=== PATIENT | female | born 1980 | race Caucasian/White ===

== ENCOUNTER 2017-01-16 21:52 | Emergency (ER) | payer MEDICAID ==
[~2017-01-16] VITALS: Ht 160 cm; Wt 57.6 kg
[~2017-01-16 21:52] MED LIST: BENZ100C70 PO; CIPR500T4 PO; HYDR-906 PO; IBUP-1542 PO; IBUP800T25 PO; ONDA4TAB14 PO; PEN500 PO; PROM6.25 PO
[2017-01-16 22:37] VITALS: Ht 160 cm; Wt 57.6 kg
--- NOTE | 2017-01-17 01:14 | ERD ---
ER Documentation Chief Complaint Date/Time DATE: 01/17/17 TIME: 01:13 Chief Complaint Right sided pelvic pain x3 days HPI 36-year-old female presents here in emergency department for complaints of right lower quadrant right pelvic pain for the last 3 days. Patient describing the pain as throbbing pain, 6/10 scale, not better or worse with anything. Patient denies any fever or chills. Patient denies hematuria or dysuria. Patient denies any diarrhea or constipation. Patient denies any nausea or vomiting. ROS All systems reviewed and are negative except as per history of present illness. Medications Home Meds Active Scripts Ibuprofen* (Motrin*) 600 Mg Tab, 600 MG PO Q6H Y for PAIN AND OR ELEVATED TEMP, #30 TAB Prov:LOLLY GROSS NP 11/06/16 Ondansetron (Ondansetron Odt) 4 Mg Tab.rapdis, 4 MG PO Q8 Y for NAUSEA AND/OR VOMITING, #10 TAB Prov:LOLLY GROSS NP 11/06/16 Hydrocodone/Acetaminophen ([place] 5-325 Tablet) 1 Each Tablet, 1 TAB PO Q6H Y for PAIN, #20 TAB Prov:LOLLY GROSS NP 11/06/16 Ibuprofen* (Motrin*) 600 Mg Tab, 600 MG PO Q6, #30 TAB Prov:DANDRE RIVAS PA-C 10/29/16 Ibuprofen* (Motrin*) 600 Mg Tab, 600 MG PO Q6, #20 TAB Prov:ARNULFO PARDO MD 02/15/16 Ibuprofen* (Motrin*) 800 Mg Tab, 800 MG PO Q6, #30 TAB Prov:ELYSSA HALEY PA-C 10/08/15 Promethazine w/Codeine* (Phenergan w/Codeine* Syrup) 5 Ml Syrup, 5 ML PO Q4H Y for COUGH, #30 ML Prov:ELYSSA HALEY PA-C 10/08/15 Benzonatate* (Tessalon Perle*) 100 Mg Capsule, 200 MG PO Q8H Y for COUGH, #30 CAP Prov:ELYSSA HALEY PA-C 10/08/15 Ciprofloxacin Hcl* (Ciprofloxacin Hcl*) 500 Mg Tablet, 500 MG PO BID for 7 Days , TAB Prov:ELYSSA HALEY PA-C 10/08/15 Ibuprofen* (Motrin*) 800 Mg Tab, 800 MG PO Q8 Y for PAIN AND OR ELEVATED TEMP, # 30 TAB Prov:TJ COLEMAN. [employer] 05/24/15 Penicillin V Potassium* (Penicillin V K*) 500 Mg Tab, 500 MG PO BID for 10 Days , TAB Prov:TJ COLEMAN. [employer] 05/24/15 Allergies Allergies: Coded Allergies: Sulfa (Sulfonamide Antibiotics) (Verified Allergy, Unknown, 11/05/16) PMhx/Soc Medical and Surgical Hx: pt denies Medical Hx History of Surgery: Yes (breast implants 2004) Anesthesia Reaction: No Hx Neurological Disorder: No Hx Respiratory Disorders: No Hx Cardiac Disorders: No Hx Psychiatric Problems: No Hx Miscellaneous Medical Probl: No Hx Alcohol Use: Yes (OOC) Hx Substance Use: No Hx Tobacco Use: No Smoking Status: Never smoker FmHx Family History: No coronary disease, No diabetes, No other Physical Exam Vitals Vital Signs Date Time Temp Pulse Resp B/P Pulse Ox O2 Delivery O2 Flow Rate FiO2 01/16/17 22:37 98.9 86 18 123/65 100 Physical Exam GENERAL: The patient is well developed and appropriate for usual state of health, in no apparent distress. CHEST: Clear to auscultation bilaterally. There are no rales, wheezes or rhonchi. HEART: Regular rate and rhythm. No murmurs, clicks, rubs or gallops. No S3 or S4. ABDOMEN: Soft, nontender and nondistended. Good bowel sounds. No rebound or guarding. No gross peritonitis. No gross organomegaly or masses. No Ariza sign or McBurney point tenderness. BACK: No midline or flank tenderness. EXTREMITIES: Equal pulses bilaterally. There is no peripheral clubbing, cyanosis or edema. No focal swelling or erythema. Full range of motion. Grossly neurovascularly intact. NEURO: Alert and oriented. Cranial nerves 2-12 intact. Motor strength in all 4 extremities with 5/5 strength. Sensation grossly intact. Normal speech and gait. SKIN: There is no apparent rash or petechia. The skin is warm and dry. HEMATOLOGIC AND LYMPHATIC: There is no evidence of excessive bruising or lymphedema. No gross cervical, axillary, or inguinal lymphadenopathy. Result Diagram: 01/17/17 0110 01/17/17 0110 Results 24 hrs Laboratory Tests Test 01/17/17 01:10 01/17/17 01:14 Alanine Aminotransferase (ALT/SGPT) 27IU/L Albumin 4.5g/dl Albumin/Globulin Ratio 1.09 Alkaline Phosphatase 84IU/L Anion Gap 18 Aspartate Amino Transf (AST/SGOT) 21IU/L Basophils # 0.010^3/ul Basophils % 0.4% Blood Morphology Comment Blood Urea Nitrogen 22mg/dl Calcium Level 9.6mg/dl Carbon Dioxide Level 28mmol/L Chloride Level 99mmol/L Creatinine 0.74mg/dl Direct Bilirubin 0.00mg/dl Eosinophils # 0.210^3/ul Eosinophils % 2.0% Globulin 4.10g/dl Glucose Level 91mg/dl Hematocrit 42.1% Hemoglobin 13.8g/dl Indirect Bilirubin 0.1mg/dl Lipase 150U/L Lymphocytes # 4.710^3/ul Lymphocytes % 46.9% Mean Corpuscular Hemoglobin 27.5pg Mean Corpuscular Hemoglobin Concent 32.7g/dl Mean Corpuscular Volume 84.1fl Mean Platelet Volume 9.9fl Monocytes # 0.810^3/ul Monocytes % 8.3% Neutrophils # 4.210^3/ul Neutrophils % 42.4% Nucleated Red Blood Cells # 0.010^3/ul Nucleated Red Blood Cells % 0.0/100WBC Platelet Count 71043^3/UL Potassium Level 4.1mmol/L Red Blood Count 5.0010^6/ul Red Cell Distribution Width 13.1% Sodium Level 141mmol/L Total Bilirubin 0.1mg/dl Total Protein 8.6g/dl White Blood Count 10.010^3/ul Urine Bilirubin NEGATIVE Urine Clarity CLEAR Urine Color LT. YELLOW Urine Glucose NEGATIVE% Urine Hemoglobin NEGATIVE Urine Ketones NEGATIVE Urine Leukocyte Esterase NEGATIVE Urine Nitrite NEGATIVE Urine Specific Roper 1.020 Urine Total Protein NEGATIVE Urine Urobilinogen 0.2 E.U./dL Urine pH 8.0 Current Medications Medications (Trade) Dose Ordered Sig/Severiano Route PRN Reason Start Time Stop Time Status Last Admin Dose Admin Acetaminophen/ Hydrocodone Bitart ([place] (10)) 1 tab ONCE ONCE PO 01/17/17 04:30 01/17/17 04:31 Patient was given medication for pain here in emergency department, after treatment, patient verbalized feeling much better. Patient's pain is improved. PROCEDURE: CT ABDOMEN/PELVIS WITHOUT CONTRAST CLINICAL INDICATION: 36-year-old female with abdominal pain. TECHNIQUE: The study was performed utilizing a [employer] VCT 64-slice CT scanner. Direct axial sections were obtained through the abdomen and pelvis without the use of intravenous contrast material. Sagittal and coronal reformations were obtained. Automated exposure control and iterative reconstruction techniques were utilized for this examination. The images were reviewed on a PACS workstation. CTD/vol = 15.2 mGy; Total Exam DLP = 797.6 mGy -cm. COMPARISON: CT abdomen/pelvis November 05, 2016;: Ultrasound pelvis January 17, 2017. FINDINGS: The inferior aspects of breast implants are noted. There is no evidence for significant pleural effusion. The liver has a normal size and contour without focal areas of abnormal density. No intrahepatic nor extrahepatic biliary ductal dilatation is seen. The gallbladder demonstrates no wall thickening nor pericholecystic fluid. No biliary stones are evident. The pancreas is without areas of abnormal attenuation. The spleen is identified and has a normal size without abnormal density. The adrenal glands are unremarkable. The kidneys are without abnormal density. No hydroureteronephrosis nor nephroureterolithiasis is evident. The urinary bladder contains urine. There is mildly dilated fluid- filled loops of small bowel without transition point to suggest an obstruction. There is mild retained stool identified within the colon. The appendix is not well visualized on this noncontrast examination. In addition there appears to be an appendicolith within the appendiceal tip measuring approximately 5 x 4 mm with probable thickening of the distal appendix measuring up to 8 mm. The uterus is unremarkable. There is minimal left adnexal free fluid. The aortoiliac vessels are without aneurysmal dilatation. The osseous structures are intact. IMPRESSION: 1. No CT evidence for obstructive uropathy or renal calculi. 2. Mild fluid throughout the small bowel without obstruction. This may representing enteritis or ileus. 3. Mild retained stool. 4. Appendicolith within the distal appendix with probable thickening measuring 8 mm however the appendix is not well visualized on this noncontrast examination. Acute appendicitis cannot be excluded. Clinical correlation and further evaluation with a limited CT with contrast may be helpful. 5. Minimal left adnexal free fluid. CRITICAL RESULTS: A call report was made to [facility] Hernández on January 17, 2017 at 03:35 a.m.. .Raymundo Dewitt MD, MD Date Time Electronically viewed and signed by .Raymundo Dewitt MD, MD on 01/17/2017 03:45 .M/ CC: LOLLY GROSS NP PROCEDURE: Ultrasound of the pelvis. CLINICAL INDICATION: Pain TECHNIQUE: Transabdominal ultrasound of the pelvis was performed to better evaluate the pelvic viscera. COMPARISON: No pertinent prior examinations were submitted for comparison. FINDINGS: LAST MENSTRUAL PERIOD: Unavailable UTERUS: Size: 8.2 x 3.9 x 4.4 cm. The uterine texture is homogeneous. The endometrium measures 9.9 mm which is within normal limits. RIGHT OVARY: Size: 3.9 x 2.3 x 2.4 cm. No ovarian lesion or cyst is identified.Normal Doppler flow is noted to the right ovary. LEFT OVARY: Size: 3.6 x 1.6 x 2.2 cm. No ovarian lesion or cyst is identified.Normal Doppler flow is noted to the left ovary. CUL-DE-SAC: There is small amount of free fluid in the cul-de-sac and right adnexal regions. IMPRESSION: Normal endometrium. No evidence of ovarian torsion. RPTAT: HIKT .Blaise Hudson MD, MD Date Time Electronically viewed and signed by .Blaise Hudson MD, MD on 01/17/2017 01:14 .T/ CC: LOLLY GROSS NP I discussed this case with my attending physician, Dr. Magaña, recommended to have patient return in 8 hours for reevaluation of symptoms, as per patient's case and presentation, and laboratory test results, and CT scan abdomen and pelvis results, there is very low suspicion for appendicitis at this time, patient's pain is improved after pain medication here in emergency department. After discussion with regional facilities specialist, Dr. Dewitt, previous CT scan report indicates the same findings. Procedures/MDM Medical Decision Making: Patient's right lower quadrant abdominal pain nonspecific at this time, can be viral enteritis, can be also be from the constipation. I discussed the CT scan abdomen and pelvis results with Dr. Magaña, reviewed the results with me, patient has an appendicolith noted on the distal appendix area, as per discussion with the radiologist specialist, Dr. Dewitt, he states that he was able to see the same type of results from previous CT scan done in October, suspicion for appendicitis at this time, Dr. Magaña recommends an 8 hour follow-up for reevaluation of symptoms and to ensure the patient is not developing abdominal emergencies. Patient does not have any leukocytosis or bandemia. Patient does not have any fever. Patient does not have any nausea or vomiting. Upon reevaluation of the patient, patient is stable, patient verbalizing much better. There is low suspicion for abdominal emergencies at this time. Patients abdominal exam is normal at this time. Patients radiology exam does not show any abdominal emergencies at this time. There is low suspicion for appendicitis, ovarian torsion, cholecystitis, abdominal aortic aneurysms or peritonitis at this time. There is low suspicion for sepsis. Patient appears well and is hemodynamically stable. Disposition: Home. Condition: Stable Prescription tramadol, Zofran, Colace, Bentyl, MiraLAX Instructions: Patient is advised to take medications as prescribed. Patient is advised to rest, increase fluid intake and do brat diet for next 1-2 days and progress as tolerated. Patient is advised that if symptoms are worse, severe abdominal pain, uncontrolled vomiting, high fever, severe flank pain, worst signs and symptoms, to return to the emergency department immediately. Otherwise, patient can follow up with here in emergency department in 8 hours. Departure Diagnosis: Primary Impression: Abdominal pain Abdominal location: right lower quadrant Qualified Code: R10.31 - Right lower quadrant abdominal pain Additional Impressions: Enteritis Constipation Constipation type: unspecified constipation type Qualified Code: K59.00 - Constipation, unspecified constipation type Condition: Stable Patient Instructions: Abdominal Pain, Constipation (Adult), Gastroenteritis, Viral (6Y-Adult) Additional Instructions: Patient is advised to take medications as prescribed. Patient is advised to rest , increase fluid intake and do brat diet for next 1-2 days and progress as tolerated. Patient is advised that if symptoms are worse, severe abdominal pain , uncontrolled vomiting, high fever, severe flank pain, worst signs and symptoms , to return to the emergency department immediately. Otherwise, patient can follow up with here in emergency department in 8 hours. LOLLY GROSS NP Jan 17, 2017 01:14
--- NOTE | 2017-01-17 01:14 | RADRPT ---
PROCEDURE: Ultrasound of the pelvis. CLINICAL INDICATION: Pain TECHNIQUE: Transabdominal ultrasound of the pelvis was performed to better evaluate the pelvic vis cera. COMPARISON: No pertinent prior examinations were submitted for comparison. FINDINGS: LAST MENSTRUAL PERIOD: Unavailable UTERUS: Size: 8.2 x 3.9 x 4.4 cm. The uterine texture is homogeneous. The endometrium measures 9.9 mm which is within normal limits. RIGHT OVARY: Size: 3.9 x 2.3 x 2.4 cm. No ovarian lesion or cyst is identified.Normal Doppler flow is noted to th e right ovary. LEFT OVARY: Size: 3.6 x 1.6 x 2.2 cm. No ovarian lesion or cyst is identified.Normal Doppler flow is noted to th e left ovary. CUL-DE-SAC: There is small amount of free fluid in the cul-de-sac and right adnexal regions. IMPRESSION: Normal endometrium. No evidence of ovarian torsion. RPTAT: HIKT .Blaise Hudson MD, MD Date Time Electronically viewed and signed by .Blaise Hudson MD, on 01/17/2017 01:14 .T/
[2017-01-17 01:34] LABS: BASOPHILS % 0.4 % (0.0-2.0); EOSINOPHILS # 0.2 10^3/ul (0.0-0.5); HEMATOCRIT 42.1 % (37.0-47.0); HEMOGLOBIN 13.8 g/dl (12.0-16.0); LYMPHOCYTES # 4.7 10^3/ul (0.8-2.9); LYMPHOCYTES % 46.9 % (15.0-51.0); MEAN CORPUSCULAR HEMOGLOBIN 27.5 pg (29.0-33.0); MEAN CORPUSCULAR HGB CONC 32.7 g/dl (32.0-37.0); MEAN CORPUSCULAR VOLUME 84.1 fl (82.0-101.0); MEAN PLATELET VOLUME 9.9 fl (7.4-10.4); MONOCYTE # 0.8 10^3/ul (0.3-0.9); MONOCYTES % 8.3 % (0.0-11.0); NEUTROPHIL # 4.2 10^3/ul (1.6-7.5); NEUTROPHILS % 42.4 % (39.0-77.0); PLATELET COUNT 238 10^3/UL (140-440); RED CELL DISTRIBUTION WIDTH 13.1 % (11.5-14.5)
[2017-01-17 01:37] LABS: ALBUMIN 4.5 g/dl (3.3-4.9); POTASSIUM 4.1 mmol/L (3.5-5.1)
[2017-01-17 01:39] LABS: CREATININE 0.74 mg/dl (0.44-1.00)
[2017-01-17 01:40] LABS: ALBUMIN/GLOBULIN RATIO 1.09; BILIRUBIN,INDIRECT 0.1 mg/dl (0-1.1); BILIRUBIN,TOTAL 0.1 mg/dl (0.2-1.3); CALCIUM 9.6 mg/dl (8.4-10.2); TOTAL PROTEIN 8.6 g/dl (6.1-8.1)
[2017-01-17 01:49] LABS: CONDITION 1
[2017-01-17 02:02] LABS: ADD UMIC NO; URINE BILIRUBIN (Dip) NEGATIVE (NEGATIVE); URINE BLOOD (Dip) NEGATIVE (NEGATIVE); URINE COLOR LT. YELLOW (YELLOW); URINE GLUCOSE (Dip) NEGATIVE (NEGATIVE); URINE KETONES (Dip) NEGATIVE (NEGATIVE); URINE LEUKOCYTE ESTERASE (Dip) NEGATIVE (NEGATIVE); URINE NITRITE (Dip) NEGATIVE (NEGATIVE); URINE TOTAL PROTEIN (Dip) NEGATIVE (NEGATIVE); URINE UROBILINOGEN (Dip) 0.2 E.U./dL (0.1-1.0)
--- NOTE | 2017-01-17 03:45 | RADRPT ---
PROCEDURE: CT ABDOMEN/PELVIS WITHOUT CONTRAST CLINICAL INDICATION: 36-year-old female with abdominal pain. TECHNIQUE: The study was performed utilizing a [employer] VCT 64-slice CT scanner. Direct axia l sections were obtained through the abdomen and pelvis without the use of intravenous contrast mate rial. Sagittal and coronal reformations were obtained. Automated exposure control and iterative dolores nstruction techniques were utilized for this examination. [facility]/vol = 15.2 mGy; Total Exam DLP = 797.6 mGy-cm. COMPARISON: CT abdomen/pelvis November 05, 2016;: Ultrasound pelvis January 17, 2017. FINDINGS: The inferior aspects of breast implants are noted. There is no evidence for significant pleural effu gibran. The liver has a normal size and contour without focal areas of abnormal density. No intrahepa tic nor extrahepatic biliary ductal dilatation is seen. The gallbladder demonstrates no wall thicken ing nor pericholecystic fluid. No biliary stones are evident. The pancreas is without areas of abnor mal attenuation. The spleen is identified and has a normal size without abnormal density. The adren al glands are unremarkable. The kidneys are without abnormal density. No hydroureteronephrosis nor n ephroureterolithiasis is evident. The urinary bladder contains urine. There is mildly dilated fluid- filled loops of small bowel without transition point to suggest an obstruction. There is mild retai lulu stool identified within the colon. The appendix is not well visualized on this noncontrast exami nation. In addition there appears to be an appendicolith within the appendiceal tip measuring approximately 5 x 4 mm with probable thickening of the distal appendix measuring up to 8 mm. The ut erus is unremarkable. There is minimal left adnexal free fluid. The aortoiliac vessels are without aneurysmal dilatation. The osseous structures are intact. IMPRESSION: 1. No CT evidence for obstructive uropathy or renal calculi. 2. Mild fluid throughout the small bowel without obstruction. This may representing enteritis or i leus. 3. Mild retained stool. 4. Appendicolith within the distal appendix with probable thickening measuring 8 mm however the odin endix is not well visualized on this noncontrast examination. Acute appendicitis cannot be excluded . Clinical correlation and further evaluation with a limited CT with contrast may be helpful. 5. Minimal left adnexal free fluid. CRITICAL RESULTS: A call report was made to [facility] Hernández on January 17, 2017 at 0 3:35 a.m.. .Raymundo Dewitt MD, MD Date Time Electronically viewed and signed by .Raymundo Dewitt MD, on 01/17/2017 03:45 .M/
[2017-01-17] MEDS ORDERED: POLY17PO6 PO (04:13)
[2017-01-17] MEDS ORDERED: TRAM50TA2 PO (04:13)
[2017-01-17] MEDS ORDERED: DICY10CA60 PO (04:13)
[2017-01-17] MEDS ORDERED: DOCU-144 PO (04:13)
[2017-01-17] MEDS ORDERED: HYDROCODONE/APAP (10/325) TAB PO ONE (04:30)
[2017-01-17 04:52] VITALS: BP 130/83; PULSE 83; RESP 18; TEMP 98.4
== END 2017-01-17 04:52 | disposition home or self-care (01) ==
LOC: FTE 21:52
DX: R10.31 Right lower quadrant pain (principal); K52.9 Noninfective gastroenteritis and colitis, unspecified; K59.00 Constipation, unspecified
CPT/HCPCS: 36415; 74176; 76856; 80053; 81003; 83690; 85025; Z7502; Z7610

== ENCOUNTER 2017-01-17 12:22 | Emergency (ER) | payer MEDICAID ==
[~2017-01-17] VITALS: Wt 59.2 kg
[~2017-01-17 12:22] MED LIST changes: +DICY10CA60 PO; +DOCU-144 PO; +POLY17PO6 PO; +TRAM50TA2 PO
--- NOTE | 2017-01-17 14:50 | ERD ---
ER Documentation Chief Complaint Date/Time DATE: 01/17/17 TIME: 14:48 Chief Complaint HERE FOR 8 HR RECHECK FOR ABD PAIN LAST NIGHT. NO NEW SYMPTOMS HPI 36-year-old female is here for recheck abdominal pain for right lower quadrant pain after being discharged approximately [address] of the abdomen and pelvis showed an appendicolith, appendix she denies any fevers, chills, nausea vomiting. She states that her pain is localized in the right lower quadrant, sharp, and slightly worsened since she last left. She denies any vaginal pain, vaginal discharge. ROS All systems reviewed and are negative except as per history of present illness. Medications Home Meds Active Scripts Docusate Sodium* (Colace*) 100 Mg Capsule, 100 MG PO TID, #30 CAP Prov:LOLLY GROSS NP 01/17/17 Polyethylene Glycol* (Miralax*) 17 Gm Powd.pack, 17 GM PO DAILY, #7 Prov:LOLLY GROSS NP 01/17/17 Dicyclomine Hcl* (Bentyl*) 10 Mg Capsule, 20 MG PO QID, #20 CAP Prov:LOLLY GROSS NP 01/17/17 Tramadol HCl (Tramadol HCl) 50 Mg Tablet, 50 MG PO Q6 Y for SEVERE PAIN LEVEL 7- 10, #20 TAB Prov:LOLLY GROSS NP 01/17/17 Ibuprofen* (Motrin*) 600 Mg Tab, 600 MG PO Q6H Y for PAIN AND OR ELEVATED TEMP, #30 TAB Prov:LOLLY GROSS NP 11/06/16 Ondansetron (Ondansetron Odt) 4 Mg Tab.rapdis, 4 MG PO Q8 Y for NAUSEA AND/OR VOMITING, #10 TAB Prov:LOLLY GROSS NP 11/06/16 Hydrocodone/Acetaminophen ([place] 5-325 Tablet) 1 Each Tablet, 1 TAB PO Q6H Y for PAIN, #20 TAB Prov:LOLLY GROSS NP 11/06/16 Ibuprofen* (Motrin*) 600 Mg Tab, 600 MG PO Q6, #30 TAB Prov:DANDRE RIVAS PA-C 10/29/16 Ibuprofen* (Motrin*) 600 Mg Tab, 600 MG PO Q6, #20 TAB Prov:ARNULFO PARDO MD 02/15/16 Ibuprofen* (Motrin*) 800 Mg Tab, 800 MG PO Q6, #30 TAB Prov:ELYSSA HALEYC 10/08/15 Promethazine w/Codeine* (Phenergan w/Codeine* Syrup) 5 Ml Syrup, 5 ML PO Q4H Y for COUGH, #30 ML Prov:ELYSSA HALEY PA-C 10/08/15 Benzonatate* (Tessalon Perle*) 100 Mg Capsule, 200 MG PO Q8H Y for COUGH, #30 CAP Prov:ELYSSA HALEY PA-C 10/08/15 Ciprofloxacin Hcl* (Ciprofloxacin Hcl*) 500 Mg Tablet, 500 MG PO BID for 7 Days , TAB Prov:ELYSSA HALEY PA-C 10/08/15 Ibuprofen* (Motrin*) 800 Mg Tab, 800 MG PO Q8 Y for PAIN AND OR ELEVATED TEMP, # 30 TAB Prov:TJ COLEMAN NP 05/24/15 Penicillin V Potassium* (Penicillin V K*) 500 Mg Tab, 500 MG PO BID for 10 Days , TAB Prov:TJ COLEMAN [employer] 05/24/15 Allergies Allergies: Coded Allergies: Sulfa (Sulfonamide Antibiotics) (Verified Allergy, Unknown, 01/17/17) PMhx/Soc History of Surgery: Yes (breast implants 2004) Anesthesia Reaction: No Hx Neurological Disorder: No Hx Respiratory Disorders: No Hx Cardiac Disorders: No Hx Psychiatric Problems: No Hx Miscellaneous Medical Probl: No Hx Alcohol Use: Yes (OOC) Hx Substance Use: No Hx Tobacco Use: No Physical Exam Vitals Vital Signs Date Time Temp Pulse Resp B/P Pulse Ox O2 Delivery O2 Flow Rate FiO2 01/17/17 12:25 98.4 100 21 142/75 99 Physical Exam General: Well-developed, well-nourished. The patient appears in no acute distress. HEENT: Head is normocephalic, atraumatic. No scleral icterus. Neck: Supple. Nontender. Lungs: Clear to auscultation. Normal air movement. Heart: Regular rate and rhythm. S1 and S2 are normal. No murmurs, gallops, or rubs. Abdomen: Soft, tender in the right lower quadrant, no masses nondistended. Bowel sounds are normoactive. Negative Ariza sign, no hepatosplenomegaly. Extremities: No clubbing or cyanosis. Normal pulses. Moving extremities x 4. No weakness. Neurologic: Alert and oriented 3. No focal deficits. Skin: Normal turgor. No rash or lesions. Result Diagram: 01/17/17 1445 01/17/17 1445 Results 24 hrs Laboratory Tests Test 01/17/17 14:30 01/17/17 14:45 Urine Bilirubin NEGATIVE Urine Clarity CLEAR Urine Color LT. YELLOW Urine Glucose NEGATIVE% Urine Hemoglobin NEGATIVE Urine Ketones NEGATIVE Urine Leukocyte Esterase NEGATIVE Urine Nitrite NEGATIVE Urine Specific [place] <=1.005 Urine Total Protein NEGATIVE Urine Urobilinogen 0.2 E.U./dL Urine pH 7.0 Alanine Aminotransferase (ALT/SGPT) 31IU/L Albumin 4.7g/dl Albumin/Globulin Ratio 1.27 Alkaline Phosphatase 71IU/L Anion Gap 18 Aspartate Amino Transf (AST/SGOT) 20IU/L Basophils # 0.010^3/ul Basophils % 0.5% Blood Urea Nitrogen 15mg/dl Calcium Level 9.7mg/dl Carbon Dioxide Level 28mmol/L Chloride Level 100mmol/L Creatinine 0.68mg/dl Direct Bilirubin 0.00mg/dl Eosinophils # 0.210^3/ul Eosinophils % 1.8% Globulin 3.70g/dl Glucose Level 86mg/dl Hematocrit 43.5% Hemoglobin 13.9g/dl Indirect Bilirubin 0.4mg/dl Lipase 175U/L Lymphocytes # 4.010^3/ul Lymphocytes % 44.9% Mean Corpuscular Hemoglobin 26.9pg Mean Corpuscular Hemoglobin Concent 32.0g/dl Mean Corpuscular Volume 84.3fl Mean Platelet Volume 11.5fl Monocytes # 0.810^3/ul Monocytes % 8.8% Neutrophils # 3.910^3/ul Neutrophils % 43.8% Nucleated Red Blood Cells # 0.010^3/ul Nucleated Red Blood Cells % 0.0/100WBC Platelet Count 08123^3/UL Potassium Level 4.3mmol/L Red Blood Count 5.1610^6/ul Red Cell Distribution Width 13.5% Sodium Level 142mmol/L Total Bilirubin 0.4mg/dl Total Protein 8.4g/dl White Blood Count 8.810^3/ul Current Medications Medications (Trade) Dose Ordered Sig/Severiano Route PRN Reason Start Time Stop Time Status Last Admin Dose Admin IV Flush 10 ml 10 ml STK-MED ONCE .ROUTE 01/17/17 15:20 01/17/17 15:21 DC 01/17/17 15:33 Sodium Chloride (NS) 100 ml @ ud STK-MED ONCE .ROUTE 01/17/17 15:20 01/17/17 15:21 DC 01/17/17 15:34 Iohexol (Omnipaque 300mg/ ml) 150 ml STK-MED ONCE .ROUTE 01/17/17 15:20 01/17/17 15:21 DC 01/17/17 15:34 Ketorolac Tromethamine (Toradol) 30 mg ONCE STAT IV 01/17/17 15:53 01/17/17 15:54 DC 01/17/17 16:00 PROCEDURE: CT abdomen and pelvis with contrast. CLINICAL INDICATION: Right lower quadrant pain TECHNIQUE: CT scan of the abdomen and pelvis with contrast was performed on a multi-slice CT scanner. The patient was scanned following the uncomplicated intravenous administration 100 cc of Omnipaque 300. Coronal and sagittal reformatted images were obtained from the axial source images. One or more of the following does reduction techniques were used: Automated exposure control; adjustment of the mA and/or kV according to patient size; use of the aorta of reconstruction technique. Images were reviewed on a high-resolution PACS workstation. The total exam CTDI equals 15.16 mGy and the total exam DLP equals 777.24 mGy-cm. COMPARISON: CT abdomen pelvis 01/17/2017 at 02:50 a.m. FINDINGS: The lung bases are clear. The heart size is normal, without pericardial thickening or effusion. The liver, spleen, and pancreas are normal. The gallbladder is normal. The adrenal glands are symmetric and normal. The kidneys show normal and symmetric enhancement. No renal calculus or obstructive uropathy is seen. The aorta is of normal caliber. There is no retroperitoneal lymph node enlargment. There is no evidence of large or small bowel obstruction. A normal appendix is identified in the medial retrocecal location. The appendix is best identified on coronal imaging. There is a small amount of pelvic free fluid. There is no abdominal free fluid. No definitive inflammatory changes are identified. There is mild retained colonic stool. The uterus is present. Incidental note is made of a corpus luteal cyst in the right adnexa centered within the free fluid. There is no evidence of pelvic sidewall lymph node enlargement. The bladder is within normal limits there is mild pelvic free fluid.. The osseous structures are intact. IMPRESSION: 1. Mild pelvic free fluid. 2. Normal appendix identified. No other CT evidence of acute intra-abdominal or pelvic process. No appendicolith identified. The calcification reported on prior CT is likely within the right ovary. RPTAT: KK .Osvaldo Diggs MD, MD Date Time Electronically viewed and signed by .Osvaldo Diggs MD, on 2016 15:43 .B/ Procedures/MDM ED course: I spoke with the patient, I did explain the risks and benefits of a CT scan, I offered to do blood work at this time to see if there are any changes of a white blood cell count, she states that she was like to ensure that there is no evidence of appendicitis at this time, given the risks versus benefits, she understands the radiation risks and is wanting to go through with a another CT scan at this time. Therefore, patient had an IV line established, repeat blood was obtained, and she had a CT abdomen pelvis with IV contrast and the patient's CT scan was normal.. MDM: 36-year-old female comes in for repeat abdominal pain in the right lower quadrant, CT abdomen pelvis does not show evidence of appendicolith, evidence of appendicitis. No pelvic findings. I did review patient's electronic medical record, her labs have remained the same, there is no leukocytosis, no electrolyte abnormalities, CT abdomen and pelvis was noted to have some mild colonic stool and she is already taking Colace. Pelvic ultrasound did not show evidence of ovarian mass or torsion. I am she was given Toradol in the emergency department this time, given that she has no surgical or acute abdominal processes, I feel that the patient can be safely managed on an outpatient basis. She has been asked to return in 8-12 hours for recheck, or sooner she has any worsening symptoms including fever. Departure Diagnosis: Primary Impression: Abdominal pain Condition: LUCY Duke PA-C Jan 17, 2017 14:49
[2017-01-17 14:54] LABS: ADD SCAN DIFF NO
[2017-01-17 15:18] LABS: ADD UMIC NO; URINE BILIRUBIN (Dip) NEGATIVE (NEGATIVE); URINE BLOOD (Dip) NEGATIVE (NEGATIVE); URINE COLOR LT. YELLOW (YELLOW); URINE GLUCOSE (Dip) NEGATIVE (NEGATIVE); URINE KETONES (Dip) NEGATIVE (NEGATIVE); URINE LEUKOCYTE ESTERASE (Dip) NEGATIVE (NEGATIVE); URINE NITRITE (Dip) NEGATIVE (NEGATIVE); URINE TOTAL PROTEIN (Dip) NEGATIVE (NEGATIVE); URINE UROBILINOGEN (Dip) 0.2 E.U./dL (0.1-1.0)
[2017-01-17 15:18] LABS: ALBUMIN 4.7 g/dl (3.3-4.9)
[2017-01-17 15:19] LABS: POTASSIUM 4.3 mmol/L (3.5-5.1)
[2017-01-17] MEDS ORDERED: IOHEXOL 300MG/ML 150 ML BTL ONE (15:20)
[2017-01-17] MEDS ORDERED: SOD CHLORIDE 0.9% 100 ML ONE (15:20)
[2017-01-17 15:21] LABS: ALBUMIN/GLOBULIN RATIO 1.27; BASOPHILS % 0.5 % (0.0-2.0); BILIRUBIN,INDIRECT 0.4 mg/dl (0-1.1); BILIRUBIN,TOTAL 0.4 mg/dl (0.2-1.3); CREATININE 0.68 mg/dl (0.44-1.00); EOSINOPHILS # 0.2 10^3/ul (0.0-0.5); EOSINOPHILS % 1.8 % (0.0-7.0); HEMATOCRIT 43.5 % (37.0-47.0); HEMOGLOBIN 13.9 g/dl (12.0-16.0); LYMPHOCYTES % 44.9 % (15.0-51.0); MEAN CORPUSCULAR HEMOGLOBIN 26.9 pg (29.0-33.0); MEAN CORPUSCULAR VOLUME 84.3 fl (82.0-101.0); MEAN PLATELET VOLUME 11.5 fl (7.4-10.4); MONOCYTE # 0.8 10^3/ul (0.3-0.9); MONOCYTES % 8.8 % (0.0-11.0); NEUTROPHIL # 3.9 10^3/ul (1.6-7.5); NEUTROPHILS % 43.8 % (39.0-77.0); PLATELET COUNT 268 10^3/UL (140-415); RED BLOOD COUNT 5.16 10^6/ul (4.20-5.40); RED CELL DISTRIBUTION WIDTH 13.5 % (11.5-14.5); TOTAL PROTEIN 8.4 g/dl (6.1-8.1); WHITE BLOOD COUNT 8.8 10^3/ul (4.8-10.8)
[2017-01-17 15:22] LABS: CALCIUM 9.7 mg/dl (8.4-10.2)
--- NOTE | 2017-01-17 15:43 | RADRPT ---
PROCEDURE: CT abdomen and pelvis with contrast. CLINICAL INDICATION: Right lower quadrant pain TECHNIQUE: CT scan of the abdomen and pelvis with contrast [facility] The patient was scanned following the uncomplicated intravenous administration 100 cc of Omnipa que 300. Coronal and sagittal reformatted images were obtained from the axial source images. One or more of the following does reduction techniques were used: Automated exposure control; adjustment of the mA and/or kV according to patient size; use of the aorta of reconstruction technique. Images were reviewed on a high-resolution PACS workstation. The total exam CTDI equals 15.16 mGy and the to emma exam DLP equals 777.24 mGy-cm. COMPARISON: CT abdomen pelvis 01/17/2017 at 02:50 a.m. FINDINGS: The lung bases are clear. The heart size is normal, without pericardial thickening or effusion. The liver, spleen, and pancreas are normal. The gallbladder is normal. The adrenal glands are symmetric and normal. The kidneys show normal and symmetric enhancement. No renal calculus or obstructive uropathy is seen. The aorta is of normal caliber. There is no retroperitoneal lymph node enlargment. There is no evidence of large or small bowel obstruction. A normal appendix is identified in the med ial retrocecal location. The appendix is best identified on coronal imaging. There is a small amoun t of pelvic free fluid. There is no abdominal free fluid. No definitive inflammatory changes are i dentified. There is mild retained colonic stool. The uterus is present. Incidental note is made of a corpus luteal cyst in the right adnexa centered within the free fluid. There is no evidence of pelvic sidewall lymph node enlargement. The bladde r is within normal limits there is mild pelvic free fluid.. The osseous structures are intact. IMPRESSION: 1. Mild pelvic free fluid. 2. Normal appendix identified. No other CT evidence of acute intra-abdominal or pelvic process. N o appendicolith identified. The calcification reported on prior CT is likely within the right ovary . RPTAT: KK .Osvaldo Diggs MD, Date Time Electronically viewed and signed by .Osvaldo Diggs MD, on 01/17/2017 15:43 .B/
[2017-01-17] MEDS ORDERED: KETOROLAC 30 MG INJ IV STA (15:53)
[2017-01-17 16:19] VITALS: BP 116/62; PULSE 69; RESP 20; TEMP 98.3
== END 2017-01-17 16:20 | disposition home or self-care (01) ==
LOC: FTE 12:22
DX: R10.31 Right lower quadrant pain (principal)
CPT/HCPCS: 36415; 74177; 80053; 81003; 83690; 85025; 96374; J1885; Q9967; Z7502; Z7610

== ENCOUNTER 2017-01-24 01:00 | Emergency (ER) | payer MEDICAID, OTHER ==
[~2017-01-24] VITALS: Ht 160 cm; Wt 59.1 kg
[2017-01-24 01:03] VITALS: Ht 160 cm; Wt 59.1 kg
[2017-01-24] MEDS ORDERED: KETOROLAC 60 MG INJ IM STA (03:27)
--- NOTE | 2017-01-24 04:37 | RADRPT ---
PROCEDURE: XR Abdomen. CLINICAL INDICATION: Abdominal pain and constipation TECHNIQUE: Upright and supine abdominal x-rays were obtained. COMPARISON: CT from 01/17/2017 FINDINGS: Few minimally dilated right lower quadrant small bowel loops are seen. Several air-fluid levels are seen throughout the abdomen which appear to primarily be within the colon. No free air is seen. Th e previously seen appendicolith is not seen with certainty. There is not a large stool burden. The lung bases are clear. The bony skeleton is unremarkable. Umbilical ring is seen. The visualized bony skeleton is unremarkable. IMPRESSION: Few minimally dilated right lower quadrant small bowel loops. Several predominately colonic air flu id levels. No definite free air. If CT is planned, oral contrast would be suggested to better eval uate the appendix compared with the prior CT. RPTAT: HLBE Physician Melodie Date Time Electronically viewed and signed by Physician Melodie on 01/24/2017 04:37 LE/
[2017-01-24] MEDS ORDERED: SOD CHLORIDE 0.9% 1,000 ML IV STA (05:03)
[2017-01-24 05:35] LABS: ADD SCAN DIFF NO
[2017-01-24 05:55] LABS: ALBUMIN 4.2 g/dl (3.3-4.9)
[2017-01-24 05:56] LABS: POTASSIUM 3.9 mmol/L (3.5-5.1)
[2017-01-24 05:58] LABS: ALBUMIN/GLOBULIN RATIO 0.95; BILIRUBIN,INDIRECT 0.3 mg/dl (0-1.1); BILIRUBIN,TOTAL 0.3 mg/dl (0.2-1.3); CREATININE 0.69 mg/dl (0.44-1.00); TOTAL PROTEIN 8.6 g/dl (6.1-8.1)
[2017-01-24 05:59] LABS: CALCIUM 9.4 mg/dl (8.4-10.2)
[2017-01-24] MEDS ORDERED: BARIUM SULF 2% 450 ML BTL (BERRY SMOOTHIE) PO ONE (06:01)
[2017-01-24 06:09] LABS: BASOPHILS % 0.4 % (0.0-2.0); EOSINOPHILS # 0.1 10^3/ul (0.0-0.5); EOSINOPHILS % 1.2 % (0.0-7.0); HEMATOCRIT 39.3 % (37.0-47.0); HEMOGLOBIN 12.9 g/dl (12.0-16.0); LYMPHOCYTES # 4.1 10^3/ul (0.8-2.9); LYMPHOCYTES % 41.8 % (15.0-51.0); MEAN CORPUSCULAR HEMOGLOBIN 27.4 pg (29.0-33.0); MEAN CORPUSCULAR HGB CONC 32.8 g/dl (32.0-37.0); MEAN CORPUSCULAR VOLUME 83.6 fl (82.0-101.0); MEAN PLATELET VOLUME 11.4 fl (7.4-10.4); MONOCYTE # 0.8 10^3/ul (0.3-0.9); NEUTROPHIL # 4.7 10^3/ul (1.6-7.5); NEUTROPHILS % 48.3 % (39.0-77.0); PLATELET COUNT 258 10^3/UL (140-415); RED CELL DISTRIBUTION WIDTH 13.2 % (11.5-14.5); WHITE BLOOD COUNT 9.7 10^3/ul (4.8-10.8)
[2017-01-24 07:15] LABS: ADD UMIC NO; URINE BILIRUBIN (Dip) NEGATIVE (NEGATIVE); URINE BLOOD (Dip) NEGATIVE (NEGATIVE); URINE COLOR LT. YELLOW (YELLOW); URINE GLUCOSE (Dip) NEGATIVE (NEGATIVE); URINE KETONES (Dip) 15 (NEGATIVE); URINE LEUKOCYTE ESTERASE (Dip) NEGATIVE (NEGATIVE); URINE NITRITE (Dip) NEGATIVE (NEGATIVE); URINE TOTAL PROTEIN (Dip) NEGATIVE (NEGATIVE); URINE UROBILINOGEN (Dip) 0.2 E.U./dL (0.1-1.0)
[2017-01-24] MEDS ORDERED: ONDANSETRON 4 MG INJ IV STA (08:20)
[2017-01-24] MEDS ORDERED: morphine 4 MG/ML VIAL IV STA (08:20)
--- NOTE | 2017-01-24 09:08 | RADRPT ---
PROCEDURE: CT Abdomen and Pelvis without contrast. CLINICAL INDICATION: Right lower quadrant abdominal pain TECHNIQUE: CT scan of the abdomen and pelvis without contrast was performed on a multidetector hig h-resolution CT scanner. The patient was scanned without intravenous contrast, with oral contrast. Coronal and sagittal reformatted images were obtained from the axial source images. Images were revi ewed on a high-resolution PACS workstation. One or more of the following dose reduction techniques w ere used: Automated exposure control, adjustment of the mA and/or kV according to patient size, us e of iterative reconstruction technique. The total exam CTDI equals 6.5 mGy and the total exam DLP equals 340.95 mGy-cm. COMPARISON: CTs from 01/17/2017 and 11/05/2016. FINDINGS: CT abdomen: The lung bases are clear. The heart size is normal, without pericardial thickening or effusion. The liver is normal in size and density without focal mass or intrahepatic biliary dilatation. The spleen is normal in size and homogeneous in density. The stomach is grossly unremarkable. The panc reas as visualized is normal. The gallbladder and biliary tree are unremarkable and there is no favio dence for biliary dilatation. The adrenal glands are symmetric and normal. The kidneys are symmetr ically unremarkable as well. No renal calculus or obstructive uropathy or mass lesion is seen. The aorta is of normal caliber. There is no retroperitoneal lymphadenopathy. The leisa hepatis reg ion is clear. The small bowel and mesentery, as visualized, are unremarkable. Enteric contrast is p resent throughout the small and large bowel. Contrast is seen within the appendix lumen. CT pelvis: The small bowel loops situated within the pelvis are unremarkable. The pelvic organs are normal. T he pelvic sidewalls and inguinal regions are clear. The sigmoid colon and rectum are unremarkable. The appendix is normal. No mass, lymphadenopathy, or free fluid is seen. No acute inflammation is s een. The surrounding osseous structures are unremarkable. No osteolytic or osteoblastic lesion is detec siva. IMPRESSION: No abdominal or pelvic acute inflammatory process, mass, or lymphadenopathy. Normal appendix. RPTAT: JJ .Sea Golden MD, MD Date Time Electronically viewed and signed by .Sea Golden MD, on 01/24/2017 09:07 .A/
[2017-01-24] MEDS ORDERED: IBUP-1542 PO (09:33)
[2017-01-24] MEDS ORDERED: ONDA4TAB14 PO (09:34)
[2017-01-24 09:54] VITALS: BP 112/73; PULSE 86; RESP 18; TEMP 98.4
--- NOTE | 2017-01-24 12:43 | ERD ---
ER Documentation Chief Complaint Date/Time DATE: 01/24/17 TIME: 12:41 Chief Complaint RLQ abd pain x 1 day HPI Patient is a 36-year-old female with multiple visits for abdominal pain upon review of old medical records who presents with abdominal pain. The patient is right lower quadrant abdominal pain which is been going on for the past few days. The pain comes and goes. This is her third visit in the last few days for the same. She was given Dierks but is not taking it. ROS All systems reviewed and are negative except as per history of present illness. Medications Home Meds Active Scripts Ondansetron (Ondansetron Odt) 4 Mg Tab.rapdis, 4 MG PO Q6H Y for NAUSEA AND/OR VOMITING, #30 TAB Prov:LUANNE LOPEZ MD 01/24/17 Ibuprofen* (Motrin*) 600 Mg Tab, 600 MG PO Q6H Y for PAIN AND OR ELEVATED TEMP, #30 TAB Prov:LUANNE LOPEZ MD 01/24/17 Discontinued Scripts Docusate Sodium* (Colace*) 100 Mg Capsule, 100 MG PO TID, #30 CAP Prov:LOLLY GROSS NP 01/17/17 Polyethylene Glycol* (Miralax*) 17 Gm Powd.pack, 17 GM PO DAILY, #7 Prov:LOLLY GROSS NP 01/17/17 Dicyclomine Hcl* (Bentyl*) 10 Mg Capsule, 20 MG PO QID, #20 CAP Prov:LOLLY GROSS NP 01/17/17 Tramadol HCl (Tramadol HCl) 50 Mg Tablet, 50 MG PO Q6 Y for SEVERE PAIN LEVEL 7- 10, #20 TAB Prov:LOLLY GROSS NP 01/17/17 Ibuprofen* (Motrin*) 600 Mg Tab, 600 MG PO Q6H Y for PAIN AND OR ELEVATED TEMP, #30 TAB Prov:LOLLY GROSS NP 11/06/16 Ondansetron (Ondansetron Odt) 4 Mg Tab.rapdis, 4 MG PO Q8 Y for NAUSEA AND/OR VOMITING, #10 TAB Prov:LOLLY GROSS NP 11/06/16 Hydrocodone/Acetaminophen ([place] 5-325 Tablet) 1 Each Tablet, 1 TAB PO Q6H Y for PAIN, #20 TAB Prov:LOLLY GROSS NP 11/06/16 Ibuprofen* (Motrin*) 600 Mg Tab, 600 MG PO Q6, #30 TAB Prov:DANDRE RIVASC 10/29/16 Ibuprofen* (Motrin*) 600 Mg Tab, 600 MG PO Q6, #20 TAB Prov:ARNULFO PARDO MD 02/15/16 Ibuprofen* (Motrin*) 800 Mg Tab, 800 MG PO Q6, #30 TAB Prov:ELYSSA HALEYC 10/08/15 Promethazine w/Codeine* (Phenergan w/Codeine* Syrup) 5 Ml Syrup, 5 ML PO Q4H Y for COUGH, #30 ML Prov:ELYSSA HALEYC 10/08/15 Benzonatate* (Tessalon Perle*) 100 Mg Capsule, 200 MG PO Q8H Y for COUGH, #30 CAP Prov:ELYSSA HALEYC 10/08/15 Ciprofloxacin Hcl* (Ciprofloxacin Hcl*) 500 Mg Tablet, 500 MG PO BID for 7 Days , TAB Prov:ELYSSA HALEYC 10/08/15 Ibuprofen* (Motrin*) 800 Mg Tab, 800 MG PO Q8 Y for PAIN AND OR ELEVATED TEMP, # 30 TAB Prov:TJ COLEMAN NP 05/24/15 Penicillin V Potassium* (Penicillin V K*) 500 Mg Tab, 500 MG PO BID for 10 Days , TAB Prov:TJ COLEMAN CHILD AND ADOLESCENT PSYCHOLOGIST 05/24/15 Allergies Allergies: Coded Allergies: Sulfa (Sulfonamide Antibiotics) (Verified Allergy, Unknown, 01/17/17) PMhx/Soc History of Surgery: Yes (breast implants 2004) Anesthesia Reaction: No Hx Neurological Disorder: No Hx Respiratory Disorders: No Hx Cardiac Disorders: No Hx Psychiatric Problems: No Hx Miscellaneous Medical Probl: Yes (OVARIAN CYST) Hx Alcohol Use: Yes (socilly) Hx Substance Use: No Hx Tobacco Use: No Smoking Status: Never smoker FmHx Family History: No diabetes Physical Exam Vitals Vital Signs Date Time Temp Pulse Resp B/P Pulse Ox O2 Delivery O2 Flow Rate FiO2 01/24/17 09:54 98.4 86 18 112/73 100 Room Air 01/24/17 08:45 86 20 113/79 100 Room Air 01/24/17 05:39 98.2 86 20 115/81 100 Room Air 01/24/17 02:45 98.2 94 20 124/83 100 Room Air 01/24/17 01:03 98.6 106 20 140/74 100 Physical Exam Const: No acute distress Head: Atraumatic Eyes: Normal Conjunctiva ENT: Normal External Ears, Nose and Mouth. Neck: Full range of motion..~ No meningismus. Resp: Clear to auscultation bilaterally Cardio: Regular rate and rhythm, no murmurs Abd: Soft, right lower quadrant tenderness to palpation without rebound or guarding Skin: No petechiae or rashes Back: No midline or flank tenderness Ext: No cyanosis, or edema Neur: Awake and alert Psych: Normal Mood and Affect Result Diagram: 01/24/1751901/24/1720 Results 24 hrs Laboratory Tests Test 01/24/17 05:04 01/24/17 05:20 Urine Bilirubin NEGATIVE Urine Clarity CLEAR Urine Color LT. YELLOW Urine Glucose NEGATIVE% Urine Hemoglobin NEGATIVE Urine Ketones 15 Urine Leukocyte Esterase NEGATIVE Urine Nitrite NEGATIVE Urine Specific [place] 1.010 Urine Total Protein NEGATIVE Urine Urobilinogen 0.2 E.U./dL Urine pH 5.0 Alanine Aminotransferase (ALT/SGPT) 30IU/L Albumin 4.2g/dl Albumin/Globulin Ratio 0.95 Alkaline Phosphatase 76IU/L Anion Gap 17 Aspartate Amino Transf (AST/SGOT) 28IU/L Basophils # 0.010^3/ul Basophils % 0.4% Blood Urea Nitrogen 12mg/dl Calcium Level 9.4mg/dl Carbon Dioxide Level 26mmol/L Chloride Level 102mmol/L Creatinine 0.69mg/dl Direct Bilirubin 0.00mg/dl Eosinophils # 0.110^3/ul Eosinophils % 1.2% Globulin 4.40g/dl Glucose Level 85mg/dl Hematocrit 39.3% Hemoglobin 12.9g/dl Indirect Bilirubin 0.3mg/dl Lipase 199U/L Lymphocytes # 4.110^3/ul Lymphocytes % 41.8% Mean Corpuscular Hemoglobin 27.4pg Mean Corpuscular Hemoglobin Concent 32.8g/dl Mean Corpuscular Volume 83.6fl Mean Platelet Volume 11.4fl Monocytes # 0.810^3/ul Monocytes % 8.0% Neutrophils # 4.710^3/ul Neutrophils % 48.3% Nucleated Red Blood Cells # 0.010^3/ul Nucleated Red Blood Cells % 0.0/100WBC Platelet Count 89037^3/UL Potassium Level 3.9mmol/L Red Blood Count 4.7010^6/ul Red Cell Distribution Width 13.2% Sodium Level 141mmol/L Total Bilirubin 0.3mg/dl Total Protein 8.6g/dl White Blood Count 9.710^3/ul Current Medications Medications (Trade) Dose Ordered Sig/Severiano Route PRN Reason Start Time Stop Time Status Last Admin Dose Admin Ketorolac Tromethamine 60 mg 60 mg ONCE STAT IM 01/24/17 03:27 01/24/17 03:28 DC 01/24/17 03:43 Sodium Chloride (NS) 1,000 ml @ 1,000 mls/hr Q1H STAT IV 01/24/17 05:03 01/24/17 06:02 DC 01/24/17 05:18 Barium Sulfate (Readi-Cat 2 ( [employer] )) 450 ml STK-MED ONCE PO 01/24/17 06:01 01/24/17 06:02 DC Morphine Sulfate (morphine) 4 mg ONCE STAT IV 01/24/17 08:20 01/24/17 08:23 DC 01/24/17 08:45 Ondansetron HCl (Zofran Inj) 4 mg ONCE STAT IV 01/24/17 08:20 01/24/17 08:23 DC 01/24/17 08:45 Procedures/MDM CT scan negative per radiology. Patient is a 36-year-old female who presents with right lower quadrant abdominal pain. She had a full workup including laboratory studies and CT scan of the abdomen pelvis. Her workup was negative for appendicitis, cholecystitis , pink otitis, or bowel obstruction. At this point I believe outpatient management is appropriate. I believe there may be an element of drug-seeking behavior and therefore the patient will be given a prescription for ibuprofen and Zofran. She needs a follow-up with a pain management doctor and I will give her information for Dr. Boyle. She can return for any worsening symptoms. Departure Diagnosis: Primary Impression: Abdominal pain Abdominal location: right lower quadrant Qualified Code: R10.31 - Right lower quadrant abdominal pain Condition: Fair Patient Instructions: Abdominal Pain Referrals: MOR LUNA MD (PCP) YANETH BOYLE Additional Instructions: SPECIALIST: YOU HAVE A MEDICAL CONDITION WHICH REQUIRES YOU TO SEE A SPECIALIST WITHIN THE NEXT 1-2 DAYS. PLEASE FOLLOW UP WITH YOUR PRIMARY PHYSICIAN FOR REFFERAL.IF YOU DO NOT HAVE A PRIMARY CARE PHYSICIAN AND/OR YOU CAN NOT AFFORD TO SEE A PHYSICIAN THE FOLLOWING RESOURCES HAVE BEEN SUPPLIED TO YOU. IT IS YOUR RESPONSIBILITY TO BE SEEN BY THE SPECIALIST LUANNE LOPEZ MD Jan 24, 2017 12:43
== END 2017-01-24 09:55 | disposition home or self-care (01) ==
LOC: E/R 01:00
DX: R10.31 Right lower quadrant pain (principal)
CPT/HCPCS: 36415; 74010; 74176; 80053; 81003; 83690; 85025; 96372; 96374; 96375; J1885; J2270; J2405; J7030; Z7502; Z7610

== ENCOUNTER 2017-04-14 11:42 | Emergency (ER) | payer OTHER ==
[~2017-04-14] VITALS: Ht 160 cm; Wt 57.8 kg
[~2017-04-14 11:42] MED LIST changes: -BENZ100C70 PO; -CIPR500T4 PO; -DICY10CA60 PO; -DOCU-144 PO; -HYDR-906 PO; -IBUP800T25 PO; -PEN500 PO; -POLY17PO6 PO; -PROM6.25 PO; -TRAM50TA2 PO
[2017-04-14 11:45] VITALS: Ht 160 cm; Wt 57.8 kg
[2017-04-14] MEDS ORDERED: SOD CHLORIDE 0.9% 1,000 ML IV STA (14:41)
[2017-04-14] MEDS ORDERED: ALBU8.5H3 INH (14:44)
[2017-04-14] MEDS ORDERED: IBUP-1542 PO (14:44)
--- NOTE | 2017-04-14 14:50 | ERD ---
ER Documentation Chief Complaint Date/Time DATE: 04/14/17 TIME: 14:46 Chief Complaint sob, palpitations x 2 days HPI 37-year-old woman complaining of 2 days of palpitations. Palpitations have been intermittent and she states that began shortly after drinking lots of alcohol. She describes shortness of breath, mild cough, nasal congestion as well. She denies cough, no fevers or chills, no calf or leg swelling, no complaints of chest pain, no vomiting or diarrhea. Patient denies previous blood clots or oral contraceptive use. She has had no long distance travel. ROS All systems reviewed and are negative except as per history of present illness. Medications Home Meds Active Scripts Albuterol Sulfate* (Proair HFA*) 8.5 Gm Hfa.aer.ad, 2 PUFF INH Q6H Y for COUGH, #1 INHALER Prov:PALAK HUSSEIN MD 04/14/17 Ibuprofen* (Motrin*) 600 Mg Tab, 600 MG PO Q8 for PAIN AND/OR INFLAMMATION, #30 TAB Prov:PALAK HUSSEIN MD 04/14/17 Ondansetron (Ondansetron Odt) 4 Mg Tab.rapdis, 4 MG PO Q6H Y for NAUSEA AND/OR VOMITING, #30 TAB Prov:LUANNE LOPEZ MD 01/24/17 Ibuprofen* (Motrin*) 600 Mg Tab, 600 MG PO Q6H Y for PAIN AND OR ELEVATED TEMP, #30 TAB Prov:LUANNE LOPEZ MD 01/24/17 Allergies Allergies: Coded Allergies: Sulfa (Sulfonamide Antibiotics) (Verified Allergy, Unknown, 01/17/17) PMhx/Soc Anxiety, chronic pain syndrome History of Surgery: Yes (breast implants 2004) Anesthesia Reaction: No Hx Neurological Disorder: No Hx Respiratory Disorders: No Hx Cardiac Disorders: No Hx Psychiatric Problems: No Hx Miscellaneous Medical Probl: Yes (OVARIAN CYST) Hx Alcohol Use: Yes (socilly) Hx Substance Use: No Hx Tobacco Use: No Smoking Status: Never smoker FmHx Family History: No diabetes Physical Exam Vitals Vital Signs Date Time Temp Pulse Resp B/P Pulse Ox O2 Delivery O2 Flow Rate FiO2 04/14/17 14:35 98.3 105 18 122/84 99 Room Air 04/14/17 11:45 98.2 117 20 142/75 99 Physical Exam GENERAL: Well-developed, well-nourished, well-hydrated, in no apparent distress , looks nontoxic in appearance HEENT: Moist mucous membranes, pink conjunctiva, no cervical spine tenderness or step-off deformities, no goiter, no jaundice or icterus, extraocular movements intact without pain. No submandibular induration, and no pharyngeal erythema NEURO: Alert and oriented 3, cranial nerves II through XII intact bilaterally, pupils equal round reactive to light, no focal deficits or facial asymmetry, sensation intact distally Strength 5/5 in upper and lower extremities bilaterally CARDIAC: Tachycardic and regular, no murmurs rubs or gallops LUNGS: Clear bilaterally no wheezing crackles or stridor ABDOMEN: Soft nontender, no guarding, no rigidity, no rebound, no psoas sign no obturator sign. Normoactive bowel sounds SKIN: Warm and dry to touch, no abrasions, contusions, or hematomas, no lacerations, no ecchymosis, no target lesions, and without ulcers EXTREMITIES: No clubbing cyanosis or edema, calves are bilaterally symmetrical, no Homans sign, no popliteal cord sign. Distal pulses equal and bilateral PSYCH: Normal affect without agitation or irritability Results 24 hrs Current Medications Medications (Trade) Dose Ordered Sig/Severiano Route PRN Reason Start Time Stop Time Status Last Admin Dose Admin Sodium Chloride (NS) 1,000 ml @ 1,000 mls/hr Q1H STAT IV 04/14/17 14:41 04/14/17 15:40 DC 04/14/17 14:54 Procedures/MDM IV line was established patient was placed on thermodynamics engineer rhythm strip revealed a sinus tachycardia at 100 bpm with upright P and T waves. Patient was afebrile. EKG performed, read by me revealed a sinus tachycardia at 108 bpm, right axis deviation, narrow QRS complex, no concerning ST elevations or depressions noted. I administered 1 L normal saline intravenously. Well's criteria was applied to this patient given her low risk. She has 1.5 points given her tachycardia, giving her a less than 2% chance of having a pulmonary embolism. The patient's tachycardia improved with 1 L normal saline given intravenously and the reassurance I provided to her. I do not feel any further blood testing or imaging is indicated in this patient and she can be safely discharged and managed by her PMD as an outpatient. Differential diagnoses considered, included but not limited to acute coronary syndrome, pulmonary embolism, aortic dissection, abdominal aortic aneurysm, sepsis, stroke, meningitis, encephalitis, pneumonia, appendicitis, cholecystitis , bowel obstruction, pyelonephritis, nephrolithiasis, cystitis, as well as metabolic, hematologic, and electrolyte abnormalities. As well as abscess, cellulitis, fractures, and dislocations. Patient feels much better at this time, and vital signs are normal, symptoms have improved. I did give strict instructions to return to the ED if symptoms continue or worsen, patient will otherwise follow-up with primary care physician. Patient understood instructions and agreed to plan. Disclaimer: Inadvertent spelling or grammatical errors are likely due to EHR/ dictation software use and do not reflect on the overall quality of patient care. Departure Diagnosis: Primary Impression: Bronchitis Additional Impression: Palpitations Condition: Good Patient Instructions: Palpitations, Uri, Viral, No Abx (Adult) Referrals: MOR LUNA MD (PCP) PALAK HUSSEIN MD April 14, 2017 14:50
[2017-04-14 16:19] VITALS: BP 121/81; PULSE 91; RESP 16; TEMP 98.3
== END 2017-04-14 16:22 | disposition home or self-care (01) ==
LOC: E/R 11:42
DX: J40 Bronchitis, not specified as acute or chronic (principal); R00.2 Palpitations
CPT/HCPCS: 93005; 96360; J7030; Z7502

== ENCOUNTER 2017-06-04 21:48 | Emergency (ER) | END 2017-06-04 23:14 | disposition home or self-care (01) | DX: L30.9 Dermatitis, unspecified (principal) | CPT/HCPCS: 96372; J2930; Z7502; Z7610 ==

== ENCOUNTER 2017-07-28 17:54 | Emergency (ER) | payer OTHER ==
[~2017-07-28] VITALS: Ht 160 cm; Wt 59.0 kg
[~2017-07-28 17:54] MED LIST changes: +ALBU8.5H3 INH; +BEN50 PO; +PRED20TA PO
[2017-07-28 17:56] VITALS: Ht 160 cm; Wt 59.0 kg
[2017-07-28] MEDS ORDERED: AZIT250T94 PO (20:57)
[2017-07-28] MEDS ORDERED: CETI10CA PO (20:57)
[2017-07-28] MEDS ORDERED: GUAI120011 PO (20:58)
--- NOTE | 2017-07-28 21:02 | ERD ---
ER Documentation Chief Complaint Date/Time DATE: 07/28/17 TIME: 21:00 Chief Complaint CHEST CONGESTION , COUGH HPI This a 37-year-old female who presents emergency department today complaining of cough and Chest congestion for the past week and a half. States she has tried pems-[id number]-[id number] medications with no improvement in symptoms. States she has used an inhaler that she was given in the past and it does help for short period of time. Denies any fevers or chills, difficulty breathing. ROS All systems reviewed and are negative except as per history of present illness. Medications Home Meds Active Scripts Guaifenesin (Mucinex) 1,200 Mg Tab.er.12h, 1200 MG PO BID for 7 Days, TAB Prov:DANDRE RIVAS PA-C 07/28/17 Cetirizine Hcl* (Zyrtec*) 10 Mg Capsule, 10 MG PO DAILY, #14 TAB.CHEW Prov:DANDRE RIVAS PA-C 07/28/17 Azithromycin* (Zithromax*) 250 Mg Tablet, 250 MG PO .ViviennePACK DIRECTED, #6 TAB TAKE 500 MG (2 TABS) THE FIRST DAY THEN 250 MG (1 TAB) DAYS 2-5 Prov:DANDRE RIVAS PA-C 07/28/17 Diphenhydramine Hcl* (Benadryl*) 50 Mg Cap, 50 MG PO Q6H Y for ITCHING/RASH, # 30 CAP Prov:SHELDON WICK PA-C 06/04/17 Prednisone* (Prednisone*) 20 Mg Tab, 40 MG PO DAILY for 4 Days, TAB Prov:SHELDON WICK PA-C 06/04/17 Albuterol Sulfate* (Proair HFA*) 8.5 Gm Hfa.aer.ad, 2 PUFF INH Q6H Y for COUGH, #1 INHALER Prov:PALAK HUSSEIN MD 04/14/17 Ibuprofen* (Motrin*) 600 Mg Tab, 600 MG PO Q8 for PAIN AND/OR INFLAMMATION, #30 TAB Prov:PALAK HUSSEIN MD 04/14/17 Ondansetron (Ondansetron Odt) 4 Mg Tab.rapdis, 4 MG PO Q6H Y for NAUSEA AND/OR VOMITING, #30 TAB Prov:LUANNE LOPEZ MD 01/24/17 Ibuprofen* (Motrin*) 600 Mg Tab, 600 MG PO Q6H Y for PAIN AND OR ELEVATED TEMP, #30 TAB Prov:LUANNE LOPEZ MD 01/24/17 Allergies Allergies: Coded Allergies: Sulfa (Sulfonamide Antibiotics) (Verified Allergy, Unknown, 01/17/17) PMhx/Soc History of Surgery: Yes (breast implants 2004) Anesthesia Reaction: No Hx Neurological Disorder: No Hx Respiratory Disorders: Yes (bronchitis) Hx Cardiac Disorders: No Hx Psychiatric Problems: No Hx Miscellaneous Medical Probl: Yes (OVARIAN CYST) Hx Alcohol Use: Yes (socially) Hx Substance Use: No Hx Tobacco Use: No Smoking Status: Never smoker Physical Exam Vitals Vital Signs Date Time Temp Pulse Resp B/P Pulse Ox O2 Delivery O2 Flow Rate FiO2 07/28/17 17:56 98.8 98 18 129/66 100 Physical Exam Const: NAD Head: Atraumatic Eyes: Normal Conjunctiva ENT: Normal External Ears, Nose and Mouth. Neck: Full range of motion..~ No meningismus. Resp: Clear to auscultation bilaterally. No absent breath sounds. Cardio: Regular rate and rhythm, no murmurs Abd: Soft, non tender, non distended. Normal bowel sounds Skin: No petechiae or rashes Back: No midline or flank tenderness Ext: No cyanosis, or edema Neur: Awake and alert Psych: Normal Mood and Affect Procedures/MDM This a 37-year-old female presents emergency department today complaining of cough and chest congestion for the past week and a half. Patient is afebrile and otherwise well-appearing. Her oxygen saturation 100%. Do not feel the patient requires a chest x-ray or breathing treatment at this time. I do have low suspicion for pneumonia, PE, abscess, pleural effusion. Given patient's duration of symptoms I will give her a prescription for azithromycin to treat possible bronchitis.I did explain to the patient this would also cover her for pneumonia. Patient was also given a prescription for Mucinex and Zyrtec. She may use the inhaler as needed as well. At this time the patient is stable for discharge and outpatient management. Patient should follow up with their PCP in the next 1-2 days. They may return to the emergency department sooner for any persistent or worsening of symptoms. Patient understood and agreed with the plan. Departure Diagnosis: Primary Impression: URI (upper respiratory infection) URI type: unspecified URI Qualified Code: J06.9 - Upper respiratory tract infection, unspecified type Condition: Fair Patient Instructions: Preventing Common Respiratory Infections Additional Instructions: Call your primary care doctor TOMORROW for an appointment during the next 1-2 days.See the doctor sooner or return here if your condition worsens before your appointment time. Take all medications as prescribed DANDRE RIVAS PA-C Jul 28, 2017 21:02
[2017-07-28 21:21] VITALS: BP 122/71; PULSE 89; RESP 18; TEMP 98.5
== END 2017-07-28 21:21 | disposition home or self-care (01) ==
LOC: FTE 17:54
DX: J06.9 Acute upper respiratory infection, unspecified (principal)
CPT/HCPCS: 99283

== ENCOUNTER 2017-10-23 10:48 | Emergency (ER) | payer OTHER ==
[~2017-10-23] VITALS: Wt 60.1 kg
[~2017-10-23 10:48] MED LIST changes: +AZIT250T94 PO; +CETI10CA PO; +GUAI120011 PO
[2017-10-23] MEDS ORDERED: IBUP-1542 PO (11:43)
--- NOTE | 2017-10-23 11:53 | ERD ---
ER Documentation Chief Complaint Chief Complaint RIGHT LEG PAIN HPI 37-year-old female comes in with right anterior mid to pain and swelling that started 2 days ago. She describes as localized pain, and she has felt an area that is IMs squishy nature, and is painful along her dial only. She denies any trauma, fevers or chills. The patient denies calf pain, leg swelling. ROS All systems reviewed and are negative except as per history of present illness. Medications Home Meds Active Scripts Ibuprofen* (Motrin*) 600 Mg Tab, 600 MG PO Q6, #30 TAB Prov:LUCY BEAN PA-C 10/23/17 Guaifenesin (Mucinex) 1,200 Mg Tab.er.12h, 1200 MG PO BID for 7 Days, TAB Prov:DANDRE RIVAS PA-C 07/28/17 Cetirizine Hcl* (Zyrtec*) 10 Mg Capsule, 10 MG PO DAILY, #14 TAB.CHEW Prov:DANDRE RIVAS PA-C 07/28/17 Azithromycin* (Zithromax*) 250 Mg Tablet, 250 MG PO .ViviennePACK DIRECTED, #6 TAB TAKE 500 MG (2 TABS) THE FIRST DAY THEN 250 MG (1 TAB) DAYS 2-5 Prov:DANDRE RIVAS PA-C 07/28/17 Diphenhydramine Hcl* (Benadryl*) 50 Mg Cap, 50 MG PO Q6H Y for ITCHING/RASH, # 30 CAP Prov:SHELDON WICK PA-C 06/04/17 Prednisone* (Prednisone*) 20 Mg Tab, 40 MG PO DAILY for 4 Days, TAB Prov:SHELDON WICK PA-C 06/04/17 Albuterol Sulfate* (Proair HFA*) 8.5 Gm Hfa.aer.ad, 2 PUFF INH Q6H Y for COUGH, #1 INHALER Prov:PAALK HUSSEIN MD 04/14/17 Ibuprofen* (Motrin*) 600 Mg Tab, 600 MG PO Q8 for PAIN AND/OR INFLAMMATION, #30 TAB Prov:PALAK HUSSEIN MD 04/14/17 Ondansetron (Ondansetron Odt) 4 Mg Tab.rapdis, 4 MG PO Q6H Y for NAUSEA AND/OR VOMITING, #30 TAB Prov:LUANNE LOPEZ MD 01/24/17 Ibuprofen* (Motrin*) 600 Mg Tab, 600 MG PO Q6H Y for PAIN AND OR ELEVATED TEMP, #30 TAB Prov:LUANNE LOPEZ MD 01/24/17 Allergies Allergies: Coded Allergies: Sulfa (Sulfonamide Antibiotics) (Verified Allergy, Unknown, 01/17/17) PMhx/Soc History of Surgery: Yes (breast implants 2004) Anesthesia Reaction: No Hx Neurological Disorder: No Hx Respiratory Disorders: Yes (bronchitis) Hx Cardiac Disorders: No Hx Psychiatric Problems: No Hx Miscellaneous Medical Probl: Yes (OVARIAN CYST) Hx Alcohol Use: Yes (socially) Hx Substance Use: No Hx Tobacco Use: No Physical Exam Vitals Vital Signs Date Time Temp Pulse Resp B/P Pulse Ox O2 Delivery O2 Flow Rate FiO2 10/23/17 10:50 98.6 72 18 144/72 99 Physical Exam General: Well-developed, well-nourished. The patient appears in no acute distress. HEENT: Head is normocephalic, atraumatic. No scleral icterus. Neck: Supple. Nontender. Lungs: Clear to auscultation. Normal air movement. Heart: Regular rate and rhythm. S1 and S2 are normal. No murmurs, gallops, or rubs. Abdomen: Nondistended. Extremities: Right anterior mid tibial region has soft tissue swelling, there is an area that is mobile, mildly tender to palpation, there is no warmth, no erythema. There are no bony deformities or bony tenderness. The patient's calf is nontender, there is no lymphatic streaking, negative Homans sign. Neurologic: Alert and oriented 3. No focal deficits. Normal speech and gait. Skin: Normal turgor. No rash or lesions. Procedures/MDM 37-year-old female comes in with a small area to the right lower leg that is painful and tender, differentials include cyst versus possible early infection versus abscess, folliculitis. The patient will be advised to apply warm compresses there and take ibuprofen, she was given return precautions and advised of any signs of infection. There are no signs of any fracture, dislocation, deep space infection. There is no calf pain, swelling, there are no signs of DVT. Departure Diagnosis: Primary Impression: Leg pain Condition: Good Patient Instructions: Normal Exam, (Child) (Adult) Additional Instructions: Physical examination shows a benign finding, likely cysts or early infection, apply warm compresses and take ibuprofen. LUCY BEAN PA-C Oct 23, 2017 11:53
== END 2017-10-23 11:40 | disposition home or self-care (01) ==
LOC: FTE 10:48
DX: M79.604 Pain in right leg (principal)
CPT/HCPCS: 99282

== ENCOUNTER 2017-11-27 15:28 | Emergency (ER) | END 2017-11-27 21:56 | disposition home or self-care (01) ==

== ENCOUNTER 2018-03-23 18:15 | Emergency (ER) | END 2018-03-23 19:25 | disposition home or self-care (01) ==

== ENCOUNTER 2018-08-08 12:43 | Emergency (ER) | END 2018-08-08 14:55 | disposition home or self-care (01) ==

== ENCOUNTER 2019-02-11 13:13 | Emergency (ER) | payer OTHER ==
[~2019-02-11] VITALS: Ht 157.5 cm; Wt 65.0 kg
[2019-02-11 13:39] VITALS: Ht 157.5 cm; Wt 65.0 kg
--- NOTE | 2019-02-11 17:25 | ERD ---
ER Documentation Chief Complaint Chief Complaint PELVIC PAIN X 2 DAYS, WORSE WHEN "POOPING" HPI 38-year-old female, presents to the emergency department, complaining of 2 days with pelvic pain, dull, constant, 4/10, worse during defecation. Otherwise, the patient denies vaginal discharge, no fever, no chills, no diarrhea or consti pation. No medications taken at this time for pain. ROS All systems reviewed and are negative except as per history of present illness. Medications Home Meds Active Scripts Naproxen* (Naprosyn*) 500 Mg Tablet, 500 MG PO BID PRN for PAIN AND/OR INFLAMMATION for 5 Days, #10 TAB Prov:LAMAR MCLEOD MD 02/11/19 Allergies Allergies: Coded Allergies: Sulfa (Sulfonamide Antibiotics) (Verified Allergy, Unknown, 02/11/19) PMhx/Soc History of Surgery: Yes (breast implants 2004) Anesthesia Reaction: No Hx Neurological Disorder: No Hx Respiratory Disorders: Yes (bronchitis) Hx Cardiac Disorders: No Hx Psychiatric Problems: No Hx Miscellaneous Medical Probl: Yes (OVARIAN CYST) Hx Alcohol Use: Yes (socially) Hx Substance Use: No Hx Tobacco Use: No Smoking Status: Never smoker FmHx Family History: No diabetes, No coronary disease Physical Exam Vitals Vital Signs Date Temp Pulse Resp B/P (MAP) Pulse Ox O2 O2 Flow FiO2 Time Delivery Rate 02/11/19 98.2 82 18 134/78 99 Room Air 20:20 (96) 02/11/19 98.7 79 16 137/66 100 13:39 (89) Physical Exam Const: No acute distress Head: Atraumatic Eyes: Normal Conjunctiva ENT: Normal External Ears, Nose and Mouth. Neck: Full range of motion. No meningismus. Resp: Clear to auscultation bilaterally Cardio: Regular rate and rhythm, no murmurs Abd: Soft, non tender, non distended. Normal bowel sounds Skin: No petechiae or rashes Back: No midline or flank tenderness Ext: No cyanosis, or edema Neur: Awake and alert Psych: Normal Mood and Affect Result Diagram: 02/11/19190202/11/191902 Results 24 hrs Laboratory Tests Test 02/11/19 18:06 02/11/19 18:07 02/11/19 19:03 Urine Color STRAW Urine Clarity CLEAR Urine pH 6.0 Urine Specific [place] 1.014 Urine Ketones NEGATIVE mg/dL Urine Nitrite NEGATIVE mg/dL Urine Bilirubin NEGATIVE mg/dL Urine Urobilinogen NEGATIVE mg/dL Urine Leukocyte Esterase TRACE Irene/ul Urine Microscopic RBC 1 /HPF Urine Microscopic WBC 2 /HPF Urine Squamous Epithelial Cells FEW /HPF Urine Bacteria FEW /HPF Urine Hemoglobin NEGATIVE mg/dL Urine Glucose NEGATIVE mg/dL Urine Total Protein NEGATIVE mg/dl POC Beta HCG, Qualitative NEGATIVE White Blood Count 9.3 10^3/ul Red Blood Count 5.14 10^6/ul Hemoglobin 14.2 g/dl Hematocrit 43.2 % Mean Corpuscular Volume 84.0 fl Mean Corpuscular Hemoglobin 27.6 pg Mean Corpuscular 32.9 g/dl Hemoglobin Concent Red Cell Distribution Width 13.7 % Platelet Count 248 10^3/UL Mean Platelet Volume 11.0 fl Immature Granulocytes % 0.300 % Neutrophils % 42.5 % Lymphocytes % 49.2 % Monocytes % 5.9 % Eosinophils % 1.8 % Basophils % 0.3 % Nucleated Red Blood Cells % 0.0 /100WBC Immature Granulocytes # 0.030 10^3/ul Neutrophils # 3.9 10^3/ul Lymphocytes # 4.6 10^3/ul Monocytes # 0.6 10^3/ul Eosinophils # 0.2 10^3/ul Basophils # 0.0 10^3/ul Nucleated Red Blood Cells # 0.0 10^3/ul Sodium Level 140 mmol/L Potassium Level 3.9 mmol/L Chloride Level 105 mmol/L Carbon Dioxide Level 23 mmol/L Anion Gap 12 Blood Urea Nitrogen 21 mg/dl Creatinine 0.77 mg/dl Est Glomerular Filtrat > 60 mL/min Rate mL/min Glucose Level 93 mg/dl Calcium Level 9.7 mg/dl Lipase 139 U/L Current Medications Medications Dose Sig/Severiano Start Time Status Last (Trade) Ordered Route PRN Stop Time Admin Dose Reason Admin Ketorolac 15 mg ONCE STAT 02/11/19 DC 02/11/19 Tromethamine IM 17:59 19:50 (Toradol) 02/11/19 18:03 Procedures/MDM At the time of discharge, symptoms have improved, vital signs stable. Differential diagnosis considered include UTI, cystitis, , endometriosis, pelvic inflammatory disease, ruptured ovarian cyst, ectopic , appendicitis, kidney stone. Less likely malignancy or acute abdomen but is still a possibility. Likely symptoms related to dysmenorrhea, low suspicion for acute abdomen. During the ED course the patient remained stable, no new complaints. The patient received treatment with Toradol IM presenting overall improvement of the symptoms. Results and clinical impression discussed with the patient who agrees with management. The patient is stable to be treated outpatient and will be discharged home with a Rx for, some side effects of prescribed medications (headache, rash, nausea, vomiting, diarrhea, drowsiness, habituation, bleeding, hypertension, interactions with other medications) were reviewed. Follow up with the primary care provider in the next 48h has been recommended. If symptoms persist, worsen or new symptoms develop, then patient should return to the ED immediately. Instructions explained and given directly by me to the patient with acknowledgment and demonstrated understanding. Disclaimer: Inadvertent spelling and grammatical errors are likely due to EHR/dictation software use and do not reflect on the overall quality of patient care. Also, please note that the electronic time recorded on this note does not necessarily reflect the actual time of the patient encounter. Departure Diagnosis: Primary Impression: Acute pain in female pelvis Condition: Stable Additional Instructions: Thank you very much for allowing us to participate in your care. Your health and safety is our top priority at [facility]. Call your primary care doctor TOMORROW for an appointment during the next 2-4 days and bring all the information and medications prescribed. Have prescriptions filled and follow precisely the directions on the label. If the symptoms get worse and your provider is unavailable, return to the Emergency Department immediately. LAMAR MCLEOD MD Feb 11, 2019 17:25
[2019-02-11] MEDS ORDERED: KETOROLAC 15 MG INJ IM STA (17:59)
[2019-02-11] MEDS ORDERED: NAPR-985 PO (20:10)
[2019-02-11 20:20] VITALS: BP 134/78; PULSE 82; RESP 18
== END 2019-02-11 20:21 | disposition home or self-care (01) ==
LOC: FTE 13:13
DX: R10.2 Pelvic and perineal pain (principal)
CPT/HCPCS: 80048; 81001; 81025; 83690; 85025; J1885; 96372

== ENCOUNTER 2019-04-28 16:40 | Emergency (ER) | payer OTHER ==
[~2019-04-28] VITALS: Ht 162.6 cm; Wt 64.4 kg
[~2019-04-28 16:40] MED LIST changes: -ALBU8.5H3 INH; -AZIT250T94 PO; -BEN50 PO; -CETI10CA PO; -GUAI120011 PO; -IBUP-1542 PO; +NAPR-985 PO; -ONDA4TAB14 PO; -PRED20TA PO
[2019-04-28 17:28] VITALS: BP 119/55; PULSE 96; RESP 18; Ht 162.6 cm; Wt 64.4 kg
[2019-04-28] MEDS ORDERED: AZIT500T3 PO (19:02)
[2019-04-28] MEDS ORDERED: ALBU8.5H8 INH (19:04)
[2019-04-28] MEDS ORDERED: GUAI600T23 PO (19:04)
[2019-04-28] MEDS ORDERED: IBUP-1542 PO (19:04)
--- NOTE | 2019-04-28 19:15 | ERD ---
ER Documentation Chief Complaint Chief Complaint chest wall pain, cough & wheezing x2 days, speaking full sentences HPI This is a 39-year-old woman complaining of 3 to 4 days of sharp nonexertional nonradiating anterior chest pain, cough, congestion. She is worried about bronchitis because she states she has had it before. She denies fevers or chills, no calf or leg swelling, no headache or blurry vision, no vomiting or diarrhea. Patient denies recent travel, recent antibiotic use, or recent sick contacts ROS All systems reviewed and are negative except as per history of present illness. Medications Home Meds Active Scripts Ibuprofen* (Motrin*) 600 Mg Tab, 600 MG PO Q8 PRN for PAIN AND/OR INFLAMMATION, #60 TAB Prov:PALAK HUSSEIN MD 04/28/19 Guaifenesin (Guaifenesin) 600 Mg Tablet.sa, 600 MG PO BID PRN for NASAL CONGESTION, #15 TAB Prov:PALAK HUSSEIN MD 04/28/19 Albuterol Sulfate* (Proair HFA*) 8.5 Gm Hfa.aer.ad, 2 PUFF INH Q6H PRN for WHEEZING AND SOB, #1 INHALER Prov:PALAK HUSSEIN MD 04/28/19 Azithromycin* (Zithromax*) 500 Mg Tablet, 500 MG PO DAILY for 5 Days, TAB Prov:PALAK HUSSEIN MD 04/28/19 Naproxen* (Naprosyn*) 500 Mg Tablet, 500 MG PO BID PRN for PAIN AND/OR IN FLAMMATION for 5 Days, #10 TAB Prov:LAMAR MCLEOD MD 02/11/19 Allergies Allergies: Coded Allergies: Sulfa (Sulfonamide Antibiotics) (Verified Allergy, Unknown, 02/11/19) PMhx/Soc Breast implants Medical and Surgical Hx: pt denies Medical Hx, pt denies Surgical Hx History of Surgery: Yes (breast implants 2004) Anesthesia Reaction: No Hx Neurological Disorder: No Hx Respiratory Disorders: Yes (bronchitis) Hx Cardiac Disorders: No Hx Psychiatric Problems: No Hx Miscellaneous Medical Probl: Yes (OVARIAN CYST) Hx Alcohol Use: No Hx Substance Use: No Hx Tobacco Use: No Smoking Status: Never smoker FmHx Family History: No diabetes Physical Exam Vitals Vital Signs Date Temp Pulse Resp B/P (MAP) Pulse Ox O2 O2 Flow FiO2 Time Delivery Rate 04/28/19 99.2 96 18 119/55 99 17:28 (76) Physical Exam Const: No acute distress, well-developed well-nourished, afebrile HEENT: Positive nasal congestion, uvula midline, no pharyngeal erythema or exudates, no submandibular induration Resp: Clear to auscultation bilaterally Cardio: Regular rate and rhythm, no murmurs Abd: Soft, non tender, non distended. No guarding or masses Ext: No cyanosis, or edema, calves symmetrical Neur: Awake and alert x3, no focal deficits or facial asymmetry Psych: Normal Mood and Affect Procedures/MDM Reassurance was provided and I prescribed her medications to help with her symptoms, I do not feel the symptoms are bacterial. Differential diagnoses considered, included but not limited to acute coronary syndrome, pulmonary embolism, aortic dissection, abdominal aortic aneurysm, sepsis, stroke, meningitis, encephalitis, pneumonia, appendicitis, cholecystitis, bowel obstruction, pyelonephritis, nephrolithiasis, cystitis, as well as metabolic, hematologic, and electrolyte abnormalities. As well as abscess, cellulitis, fractures, and dislocations. Patient feels much better at this time, and vital signs are normal, symptoms have improved. I did give strict instructions to return to the ED if symptoms continue or worsen, patient will otherwise follow-up with primary care physician. Patient understood instructions and agreed to plan. Disclaimer: Inadvertent spelling and grammatical errors are likely due to EHR/dictation software use and do not reflect on the overall quality of patient care. Also, please note that the electronic time recorded on this note does not necessarily reflect the actual time of the patient encounter. Departure Diagnosis: Primary Impression: Bronchitis Condition: Good Patient Instructions: Uri, Viral, No Abx (Adult) Referrals: [facility] (PCP) PALAK HUSSEIN MD Apr 28, 2019 19:15
== END 2019-04-28 19:09 | disposition home or self-care (01) ==
LOC: FTE 16:40
DX: J40 Bronchitis, not specified as acute or chronic (principal)
CPT/HCPCS: 99283

== ENCOUNTER 2019-05-13 12:27 | Emergency (ER) | payer OTHER ==
[~2019-05-13] VITALS: Ht 160 cm; Wt 63.6 kg
[~2019-05-13 12:27] MED LIST changes: +ALBU8.5H8 INH; +AZIT500T3 PO; +GUAI600T23 PO; +IBUP-1542 PO
[2019-05-13 12:29] VITALS: BP 130/72; PULSE 91; RESP 18; Ht 160 cm; Wt 63.6 kg
[2019-05-13] MEDS ORDERED: IBUPROFEN 600 MG TAB PO ONE (13:00)
--- NOTE | 2019-05-13 13:10 | ERD ---
ER Documentation Chief Complaint Chief Complaint pelvic pain w/nuasea x2 wks, denies painful urination HPI Patient is a 39-year-old female who presents the ER for concerns of bilateral pelvic pain for last 2 weeks. Patient states her pain is worse on the right side. Patient does have history of previous ovarian cyst however states her pain is "different". Patient denies any fevers or chills. Patient denies any dysuria however she does admit to frequency. Patient states her last mental period was in 6 619. Patient does admit to nausea however she denies any vom iting. Patient denies any diarrhea or rectal bleeding. ROS All systems reviewed and are negative except as per history of present illness. Medications Home Meds Active Scripts Ibuprofen* (Motrin*) 600 Mg Tab, 600 MG PO Q6, #30 TAB Prov:ASA MUHAMMAD PA-C 05/13/19 Nitrofurantoin Monohyd Macrocr* (Macrobid*) 100 Mg Capsr, 100 MG PO BID for 5 Days, CAP Prov:ASA MUHAMMAD PA-C 05/13/19 Ibuprofen* (Motrin*) 600 Mg Tab, 600 MG PO Q8 PRN for PAIN AND/OR INFLAMMATION, #60 TAB Prov:PALAK HUSSEIN MD 04/28/19 Guaifenesin (Guaifenesin) 600 Mg Tablet.sa, 600 MG PO BID PRN for NASAL CONGESTION, #15 TAB Prov:PALAK HUSSEIN MD 04/28/19 Albuterol Sulfate* (Proair HFA*) 8.5 Gm Hfa.aer.ad, 2 PUFF INH Q6H PRN for WHEEZING AND SOB, #1 INHALER Prov:PALAK HUSSEIN MD 04/28/19 Azithromycin* (Zithromax*) 500 Mg Tablet, 500 MG PO DAILY for 5 Days, TAB Prov:PALAK HUSSEIN MD 04/28/19 Naproxen* (Naprosyn*) 500 Mg Tablet, 500 MG PO BID PRN for PAIN AND/OR INFLAMMATION for 5 Days, #10 TAB Prov:LAMAR MCLEOD MD 02/11/19 Allergies Allergies: Coded Allergies: Sulfa (Sulfonamide Antibiotics) (Verified Allergy, Unknown, 02/11/19) PMhx/Soc History of Surgery: Yes (breast implants 2004) Anesthesia Reaction: No Hx Neurological Disorder: No Hx Respiratory Disorders: Yes (bronchitis) Hx Cardiac Disorders: No Hx Psychiatric Problems: No Hx Miscellaneous Medical Probl: Yes (OVARIAN CYST) Hx Alcohol Use: No Hx Substance Use: No Hx Tobacco Use: No Smoking Status: Never smoker FmHx Family History: No diabetes Physical Exam Vitals Vital Signs Date Temp Pulse Resp B/P (MAP) Pulse Ox O2 O2 Flow FiO2 Time Delivery Rate 05/13/19 98.1 91 18 130/72 100 12:29 (91) Physical Exam GENERAL: Well-developed, well-nourished female. Appears in no acute distress. HEAD: Normocephalic, atraumatic. EYES: Pupils are equally reactive bilaterally. EOMs grossly intact. No conjunctival erythema. ENT: Moist mucous membranes. No uvula deviation. No kissing tonsils. NECK: Supple. No meningismus. Normal range of motion of the neck. LUNG: Clear to auscultation bilaterally. No rhonchi, wheezing, rales or coarse breath sounds. HEART: Regular rate and rhythm. No murmurs, rubs or gallops. ABDOMEN: No scars, ecchymosis or rashes noted. Soft, nondistended. Minimally tender to palpation in the suprapubic region. Positive bowel sounds in all four quadrants. No rebound tenderness, no guarding. (-) McBurney's point tenderness. No CVA tenderness. BACK: No midline tenderness. EXTREMITIES: Equal pulses bilaterally. No peripheral clubbing, cyanosis or edema. No unilateral leg swelling. NEUROLOGIC: Alert and oriented. Moving all four extremities without any difficulty. Normal speech. Steady gait. SKIN: Normal color. Warm and dry. No rashes or lesions. Results 24 hrs Laboratory Tests Test 05/13/19 13:25 Bedside Urine pH (LAB) 5.0 Bedside Urine Protein (LAB) Negative Bedside Urine Glucose (UA) Negative Bedside Urine Ketones (LAB) Negative Bedside Urine Blood Negative Bedside Urine Nitrite (LAB) Negative Bedside Urine Leukocyte Esterase (L 1+ POC Beta HCG, Qualitative NEGATIVE Current Medications Medications Dose Sig/Severiano Start Time Status Last (Trade) Ordered Route PRN Stop Time Admin Dose Reason Admin Ibuprofen 600 mg ONCE ONCE 05/13/19 DC 05/13/19 (Motrin) PO 13:00 13:05 05/13/19 13:01 Procedures/MDM ED COURSE: The patient was stable throughout ED course. I kept the patient and/or family informed of laboratory and diagnostic imaging results throughout the ED course. DIAGNOSTIC IMAGING: Read by radiologist. Patient: JIGNESH HENDRICKS : 1980 Age: 39 Sex: F MR #: [id number] DOS: 05/13/19 1255 Ordering MD: ASA MUHAMMAD PA-C Location: [facility] Room/Bed: AMENDMENT: 05/13/2019 3:21:13 PM Wan Fang M.d There is bilateral ovarian flow. PROCEDURE: US Pelvis. CLINICAL INDICATION: pelvic pain TECHNIQUE: Multiple sonographic images of the pelvis were obtained utilizing a transabdominal and endovaginal technique. The images were reviewed on a PACS workstation. COMPARISON: 01/17/2017 FINDINGS: The uterus is visualized and measures 6.2 x 3.2 x 2.3 cm. The endometrial echo complex measures 7 mm. There is no evidence for free fluid. The right ovary measures 4 x 2.7 x 2.3 cm. The left ovary measures 2.8 x 1.7 x1.3 cm. There is a 1.8 x 1.7 cm hypoechoic lesion within the right ovary. IMPRESSION: There is a 1.8 x 1.7 cm hypoechoic lesion within the right ovary. This may represent a cyst versus hemorrhagic cyst. Follow-up pelvic ultrasound in 1-2 is recommended to ensure stability. Correlate with test to exclude ectopic or abnormal . Physician Soham Date Time Electronically viewed and signed by Physician Soham on 05/13/2019 15:14 RD/ CC: ASA MUHAMMAD PA-C [id number] MEDICAL DECISION MAKING: This is a 39-year-old female presents the ER for concerns of bilateral pelvic pain for the last 2 weeks. Vital signs were reviewed. Patient was afebrile. Urine test was negative. UA did show 1+ leukocyte esterase. Pelvic ultrasound showed findings consistent with right ovarian cyst. See formal report above. Bilateral ovarian blood flow was noted. At this time, patient's presentation is most consistent with ovarian cyst and UTI. Low suspicion for ectopic , ovarian torsion, PID, tubo-ovarian abscess, fibroids, endometriosis, vulvovaginitis, uterine prolapse, nephrolithiasis, pyelonephritis, UTI, appendicitis, diverticulitis, bowel obstruction. Patient was nontoxic, [id number] prior to discharge. Patient advised to follow-up with [facility] OPERATOR for further management of her ultrasound findings. PRESCRIPTIONS: Ibuprofen, Macrobid DISCHARGE: At this time, patient is stable for discharge and outpatient management. I have instructed the patient to follow-up with his/her primary care physician in 1-2 days. I have discussed with the patient the possibility of needing to see a specialist for further workup and diagnostic studies if the pain persists. I giordano ve instructed the patient to promptly return to the ER at any time for any new or worsening symptoms including increased pain, nausea, vomiting, vaginal bleeding, weakness or fever. The patient and/or family expressed understanding of and agreement with this plan. All questions were answered. Home care instructions were provided. Disclaimer: Inadvertent spelling and grammatical errors are likely due to EHR/dictation software use and do not reflect on the overall quality of patient care. Also, please note that the electronic time recorded on this note does not necessarily reflect the actual time of the patient encounter. Departure Diagnosis: Primary Impression: Pelvic pain Additional Impressions: Ovarian cyst, right UTI (urinary tract infection) Urinary tract infection type: site unspecified Hematuria presence: without hematuria Qualified Codes: N39.0 - Urinary tract infection, site not specified Condition: Fair Patient Instructions: Ovarian Cyst Referrals: [facility] YOU HAVE RECEIVED A MEDICAL SCREENING EXAM AND THE RESULTS INDICATE THAT YOU DO NOT HAVE A CONDITION THAT REQUIRES URGENT TREATMENT IN THE EMERGENCY DEPARTMENT. FURTHER EVALUATION AND TREATMENT OF YOUR CONDITION CAN WAIT UNTIL YOU ARE SEEN IN YOUR DOCTORS OFFICE WITHIN THE NEXT 1-2 DAYS. IT IS YOUR RESPONSIBILITY TO MAKE AN APPOINTMENT FOR FOLOW-UP CARE. IF YOU HAVE A PRIMARY DOCTOR --you should call your primary doctor and schedule an appointment IF YOU DO NOT HAVE A PRIMARY DOCTOR YOU CAN CALL OUR PHYSICIAN REFERRAL HOTLINE AT IF YOU CAN NOT AFFORD TO SEE A PHYSICIAN YOU CAN CHOSE FROM THE FOLLOWING [facility] [address] [facility] [address] [facility] [address] [facility] [address] [facility] [address] [facility]. [facility]. [address] [facility]. [facility] YOU HAVE RECEIVED A MEDICAL SCREENING EXAM AND THE RESULTS INDICATE THAT YOU DO NOT HAVE A CONDITION THAT REQUIRES URGENT TREATMENT IN THE EMERGENCY DEPARTMENT. FURTHER EVALUATION AND TREATMENT OF YOUR CONDITION CAN WAIT UNTIL YOU ARE SEEN IN YOUR DOCTORS OFFICE WITHIN THE NEXT 1-2 DAYS. IT IS YOUR RESPONSIBILITY TO MAKE AN APPOINTMENT FOR FOLOW-UP CARE. IF YOU HAVE A PRIMARY DOCTOR --you should call your primary doctor and schedule and appointment IF YOU DO NOT HAVE A PRIMARY DOCTOR YOU CAN CALL OUR PHYSICIAN REFERRAL HOTLINE AT . IF YOU CAN NOT AFFORD TO SEE A PHYSICIAN YOU CAN CHOSE FROM THE FOLLOWING [facility] INSTITUTIONS: [facility] [address] [place] [address] [facility] [address] [place] [address] [facility] [address] [place] [address] [facility] [address] [facility] [address] [place], [place] [phone] OFFICE FAX ARNAV PENG [address] [place], [place] [phone] [place] [address] [place], [place] [id number] [place] [address] [facility] [address] [address] [address] [place] [address] [facility] [address] [place], [place] [id number] [address] [facility] [address] - [address] CAMARGO, CHASITY [address], [facility] [address] [address] TAYLOR, SHRUTHI [address] [facility]. [address], [place] [address] [address] AMES, [facility] [address] [place] [address] Additional Instructions: Repeat pelvic ultrasound advised. Follow-up with RADIO STATION OPERATOR. Monitor symptoms closely. Return to the ER for any new or worsening symptoms. ASA MUHAMMAD PA-C May 13, 2019 13:10
[2019-05-13] MEDS ORDERED: NITR-58 PO (15:07)
[2019-05-13] MEDS ORDERED: IBUP-1542 PO (15:08)
== END 2019-05-13 15:18 | disposition home or self-care (01) ==
LOC: FTE 12:27
DX: N83.201 Unspecified ovarian cyst, right side (principal); N39.0 Urinary tract infection, site not specified
CPT/HCPCS: 76856; 81003; 81025; Z7610